=== PATIENT | female | born 1960 | race Caucasian/White ===

== ENCOUNTER 2019-02-17 15:55 | Inpatient (IN) | payer MEDICARE ==
[~2019-02-17] VITALS: Ht 154.9 cm; Wt 90.9 kg
--- NOTE | ~2019-02-17 | PR ---
[place], [place] PROGRESS NOTE NAME: SHEYLA ROWLAND UNIT #: [id number] ROOM: 310 DOCTOR: KYLE PRASAD MD BIRTHDATE: [birth year] DOS: 02/19/2019 INTERVAL NOTE CHIEF COMPLAINT: "I am having hot flashes, I am not sleeping, I just want to go home." SUMMARY OF THE VISIT: The patient was interviewed with the nurse present. The patient had later last evening voiced a desire to leave the hospital and was not compliant with care. I confronted her this morning on the seriousness of her action of holding a gun and the comments that she made about being suicidal. I also did reiterate that she is here on an involuntary basis and we have until Friday to determine whether or not we should file for further length of stay and that her cooperation would go a long way in determining what our plans would be and what we could tell the court was a possibility. She did later state that she is hopeful to get help and does want to have the anxiety under control and be able to sleep better at night. She convincingly denies medication side effects. MENTAL STATUS: She is alert and oriented to person, place and time. Mood does seem to be rather depressed with anxious overtones. There is no deepa, hypomania or psychosis. Short term memory, long-term memory and intermediate are intact. PLAN: I will increase her Seroquel to 50 mg twice a day and 100 mg at bedtime, attempting to stabilize mood, decrease anxiety and aid sleep. I will increase hydroxyzine to 50 mg q.i.d. attempting to utilize nonaddicting agents to help her with anxiety. I will use Rozerem as a p.r.n. for sleep, again avoiding sedative hypnotics, engage in individual and granados milieu activity, returning to the least restrictive environment when psychiatrically stable. KYLE PRASAD MD CM:PNTRANS [id number] KYLE PRASAD MD 02/19/19 1402 interface
--- NOTE | ~2019-02-17 | DS ---
[place], [place] DISCHARGE SUMMARY NAME: SHEYLA ROWLAND [facility] #: [id number] UNIT #: [id number] ROOM: 310 DOCTOR: KYLE PRASAD MD BIRTHDATE: [birth year] DOS: 02/22/2019 CHIEF COMPLAINT: "I am just so depressed and so anxious, I don't know what to do." HISTORY OF PRESENT ILLNESS: This is a 58-year-old white female with a lengthy history of major depression as well as anxiety disorder. The patient was found 3 days ago with a loaded gun held up to her head. The patient was able to be talked down and her boyfriend was able to get her into the Emergency Room at [facility]. Once there, she was evaluated and felt to be at substantial risk of harm to self, and in the midst of a major depressive episode. She was subsequently sent to [facility] for further treatment. The patient reports a lengthy history of depression for at least the last 20 years. This most recent episode has worsened in the last several weeks. During this period of time, she endorses poor sleep with difficulty falling asleep, sleep continuity disturbance, life support technician awakening, anergia, anhedonia, hopeless, helpless feelings, crying spells, and inability to cope. She reports fleeting suicidal thoughts, but does not have a plan at the present time. She is admitted now to rule out organic factors and to attempt to stabilize on medication. SUMMARY OF HOSPITAL COURSE: The patient was admitted to the unit where her Effexor XR was discontinued in lieu of Pristiq 100 mg in the morning. It was felt that the Pristiq as the active metabolite of Effexor XR would bypass the liver for metabolism and would have less risk of side effects for her with more benefit. Additionally, attempts to utilize non-addicting antianxiety medicines were put into place. Hydroxyzine 50 mg 3 times daily was started. Initially, she was started on Vraylar but this was discontinued in lieu of Seroquel 25 mg 3 times daily, hydroxyzine was subsequently increased to 4 times a day and the Seroquel gradually increased to its maximum dose during her stay of 100 mg 3 times a day. With these changes, the patient's symptoms improved. She was able to sleep better at night. She was able to wake up refreshed. She voiced positive plans for the future. She convincingly denied suicidal thoughts, homicidal thoughts, or any self-injurious thoughts. She also convincingly denied any medication side effects. The patient had improved sufficiently by 02/22/2019 to return home. MENTAL STATUS AT DISCHARGE: The patient is alert and oriented to person, place, and time. Mood is euthymic. Affect appropriate. There is no deepa or hypomania. There is no gross psychosis, no auditory or visual hallucinations. No delusions, no paranoia. Memory for the most part is fully intact. FINAL DIAGNOSES: Major depression, recurrent, severe; dysthymic disorder and anxiety disorder, not otherwise specified. DISPOSITION: All of her prescriptions have been E-scribed to [facility]. She will have followup in the community. At the time of discharge, she was medically and psychiatrically stable. [place], [place] DISCHARGE SUMMARY NAME: SHEYLA ROWLAND UNIT #: [id number] ROOM: 310 DOCTOR: KYLE PRASAD MD BIRTHDATE: [birth year] KYLE PRASAD MD CM:MARY ANN [id number] KYLE PRASAD MD 02/22/19 1302 interface
--- NOTE | ~2019-02-17 | PR ---
[place], [place] PROGRESS NOTE NAME: SHEYLA ROWLAND UNIT #: [id number] ROOM: 310 DOCTOR: DAVIDSON ARANDA CNP BIRTHDATE: [birth year] DOS: 02/20/2019 CHIEF COMPLAINT: "Can I get some Prilosec for my reflux?" SUMMARY OF THE VISIT: The patient was interviewed as she sat in the dining room, participating in activity. She engaged readily in conversation with me. She reports that her mood has been calm and she feels that her anxiety has improved. She reports that she slept well last night and that her appetite has been good. She continues to perseverate on getting a prescription for Prilosec. Staff reports that the patient does make bizarre comments at time and she does request different types of medications. MENTAL STATUS EXAMINATION: The patient was alert and oriented times person, place and time. She was pleasant and cooperative with me. Her mood was calm. Her affect was congruent with mood. There was no overt deepa or hypomania noted. No delusions or paranoia noted. No psychotic symptoms noted. No auditory or visual hallucinations noted. PLAN: We will continue all medications as prescribed at this time. The patient appears to be tolerating medications without side effects. Continue to encourage the patient to engage in individual and granados milieu activity. Continue fall and safety precautions. Plan is to return the patient to the least restrictive environment when she is considered psychiatrically stable. Davidson Aranda CNP CM:PNTRANS [id number] DAVIDSON ARANDA CNP 02/20/19 1608 interface
--- NOTE | ~2019-02-17 | PR ---
[place], [place] PROGRESS NOTE NAME: SHEYLA ROWLAND UNIT #: [id number] ROOM: 310 DOCTOR: DAVIDSON ARANDA CNP BIRTHDATE: [birth year] DOS: 02/21/2019 CHIEF COMPLAINT: "I am feeling better." SUMMARY OF THE VISIT: The patient was interviewed as she sat in the activity room. She has been engaged in activities. She engages readily in conversation with me. She denies any type of suicidal ideation. She does report that she does feel some agitation and starts feeling antsy in the afternoon. Staff reports that the patient is medication seeking for any type of meds including Tylenol, Maalox. She did sleep well last night and her appetite has been good. No overt behaviors noted. MENTAL STATUS EXAMINATION: The patient is alert and oriented x 3, pleasant and cooperative with me. No deepa or hypomania noted. No delusions or paranoia noted. No psychotic symptoms noted. No auditory or visual hallucinations noted. Her mood seems to be trending towards euthymia. She was calm. Affect was appropriate. Insight and judgment fair. PLAN: We will increase the patient's Seroquel to 100 mg 3 times a day in order to help alleviate the agitation symptoms. We will monitor the patient to make sure that she tolerates the medications without any extrapyramidal side effects or tardive dyskinesia. Continue to encourage the patient to engage in individual and granados milieu activity. Continue fall and safety precautions. Plan to return the patient to the least restrictive environment when she is considered psychiatrically stable. Davidson Aranda CNP CM:PNTRANS [id number] DAVIDSON ARANDA CNP 02/22/19 0324 interface
--- NOTE | ~2019-02-17 | CON ---
[place], [place] REPORT OF CONSULTATION [id number] UNIT #: [id number] ROOM: 310 DOCTOR: PHD JERSON GLENYS BIRTHDATE: [birth year] DOS: 02/18/2019 HISTORY OF PRESENT ILLNESS: The patient is a 58-year-old female referred by Dr. Madera for counseling. At the present time, the patient is on the [facility] at [place] [facility]. The patient lives with her boyfriend of 12 years. She has 2 sons who are estranged from her. She is on disability and endorsed rare alcohol use. She also denied tobacco and drug use. PAST MEDICAL HISTORY: Anxiety, congenital limb deformity, depression, GERD, suspected multiple sclerosis, and obesity. MEDICATIONS: Seroquel, Vistaril, Pristiq, Geodon, and Ativan. MENTAL STATUS EXAMINATION: The patient was awake, alert and oriented to person, place and generally to time. She can name the current President. Mood was depressed and affect was blunted. She endorsed occasional thoughts of suicide, but denied a desire to . She states that her moravian beliefs kept her from killing herself with a loaded gun she had to her head before her admission. She denied a history of suicidal ideation. Speech and language were within normal limits conversationally. Thought process was linear and goal directed. There is no evidence of hallucinations or delusions. Discussed contributing factors to her depression including her relationships with her son, ex-, and deaths in the family. Utilized CBT and supportive therapy interventions. The patient would like to continue with counseling while in inpatient. She participated in outpatient counseling in the past about 7 years ago. DIAGNOSES: Major depressive disorder, recurrent, severe; dysthymic disorder, rule out personality disorder. PLAN: I will continue to follow the patient for counseling while she is on the [facility]. Jannette Irizarry, PhD CM:CONSTR:REPORT OF CONSULTATION 174 02/18/192123 interface
--- NOTE | ~2019-02-17 | WRIGHTHP ---
[place], [place] PATIENT HISTORY AND PHYSICAL EXAM NAME: [facility]OWLAND [id number] UNIT #: [id number] ROOM: 310 DOCTOR: KYLE PRASAD MD BIRTHDATE: [birth year] DOS: 02/18/2019 INITIAL PSYCHIATRIC EVALUATION CHIEF COMPLAINT: "I am just so depressed and so anxious, I don't know what to do." HISTORY OF PRESENT ILLNESS: This is a 58-year-old white female with a lengthy history of major depression as well as anxiety disorder. The patient had been found 3 days ago with a loaded gun held to her head. The patient was able to be talked down and her boyfriend was able to get her into the Emergency Room at [place]. Once there, she was evaluated and was felt to be a substantial risk of harm to self and in a midst of a major depression and she was then admitted to the [facility] at [facility] for further evaluation and treatment. The patient reports a lengthy history of depression and states that she has been depressed for at least 20 years, of this most recent episode has worsened in the last several weeks. During which time, she notes exceptionally poor sleep with difficulty falling asleep, sleep continuity disturbance, analytical research program manager awakening, anergia, anhedonia, hopeless and helpless feelings, crying spells, and inability to cope. The patient does have fleeting suicidal thoughts and states that at times she feels that this is the only way out, but has resisted attempting suicide because she does not want to go to hell. She is admitted now to rule out organic factors to attempt to stabilize on medication, to engage in individual and granados milieu activity, returning to the least restrictive environment when psychiatrically stable. PAST MEDICAL HISTORY: Remarkable for congenital limb deformity, GERD, multiple sclerosis, obesity. SOCIAL HISTORY: She does not drink alcohol, smoke cigarettes or use illicit drugs. STRENGTHS: Ambulatory, good verbal skills. WEAKNESSES: Chronic long-term mental health issues, poor coping skills. MENTAL STATUS: The patient is alert and oriented. Mood is overwhelmingly depressed and she cried openly during the interview. She also endorses significant anxiety and feels multiple autonomic nervous system dysregulation issues with rapid heartbeat, diaphoresis and other symptoms. She endorses multiple neurovegetative symptoms associated with the depression. She also has fleeting suicidal thoughts. The patient does not have any symptoms suggestive of deepa or hypomania. She does not have any auditory or visual hallucinations. No delusions, no paranoia. Memory for short, intermediate, and custodial events is intact. DIAGNOSES: Major depression, recurrent; dysthymic disorder; rule out AXIS II disorder. PLAN: I will discontinue her Vraylar in lieu of Seroquel 25 mg 3 times a day. [place], [place] PATIENT HISTORY AND PHYSICAL EXAM NAME: SHEYLA ROWLAND UNIT #: [id number] ROOM: 310 DOCTOR: KYLE PRASAD MD BIRTHDATE: [birth year] I have also started her on hydroxyzine 50 mg 3 times a day to attempt to get ahead of the anxiety. In lieu of the Effexor XR that she was prescribed as an outpatient, I have discontinued it with Pristiq [address]. We will engage in individual and granados milieu activity, returning then to the least restrictive environment when psychiatrically stable. KYLE PRASAD MD CM:HISPHYS:PATIENT HISTORY AND PHYSICAL EXAMINATION [id number] KYLE PRASAD MD 02/18/19 1153 interface
[2019-02-17] MEDS ORDERED: XANAX0.5 MG PO (16:19)
[2019-02-17] MEDS ORDERED: EFFEXOR XR75 M1 PO (16:19)
[2019-02-17] MEDS ORDERED: EFFEXOR XR150 M1 PO (16:20)
[2019-02-17] MEDS ORDERED: ABILIFY10 MG PO (16:20)
[2019-02-17 19:40] VITALS: BP 134/82
[2019-02-18 07:05] LABS: BASO % 0.3 % (0.0-1.0); EOS # 0.5 10*3/uL (0.0-0.4); EOS % 5.1 % (1.0-4.0); HEMATOCRIT 46.4 % (37.0-47.0); HEMOGLOBIN 14.7 g/dl (12.0-16.0); LYMPH # 2.2 10*3/uL (1.3-4.4); LYMPH % 20.6 % (27.0-41.0); MEAN CELL VOLUME 92.4 fl (81.0-99.0); MEAN CORPUSCULAR HGB 29.3 pg (27.0-31.0); MEAN CORPUSCULAR HGB CONC 31.7 g/dl (33.0-37.0); MEAN PLATELET VOLUME 11.8 fl (9.6-12.3); MONO # 0.7 10*3/uL (0.1-1.0); MONO % 6.5 % (3.0-9.0); NEUT # 7.1 10*3/uL (2.3-7.9); PLATELET COUNT AUTOMATED 243 10*3/uL (130-400); RED BLOOD COUNT 5.02 10*6/uL (4.10-5.10); RED CELL DISTRI WIDTH 15.3 % (0-14.5); WHITE BLOOD COUNT 10.6 10*3/uL (4.8-10.8)
[2019-02-18 07:41] LABS: ALBUMIN 3.1 gm/dl (3.1-4.5); BUN 9 mg/dl (7-24); CHLORIDE 103 mmol/L (98-107); CHOLESTEROL 266 mg/dL (<200); HDL CHOLESTEROL 25 mg/dl (40-60); LDL CHOLESTEROL 179 mg/dL (9-159); POTASSIUM 3.6 mmol/L (3.5-5.1); SGOT/AST 29 IU/L (3-35); SGPT/ALT 25 U/L (12-78); SODIUM 139 mmol/L (136-145); TOTAL PROTEIN 7.2 gm/dL (6.4-8.2); TRIGLYCERIDES 312 mg/dl (<150); VLDL CHOLESTEROL 62 mg/dL (6-40)
[2019-02-18 07:49] LABS: ALKALINE PHOSPHATASE 145 U/L (45-117)
[2019-02-18 08:14] VITALS: BP 128/88
[2019-02-18 09:16] LABS: VITAMIN D, 25-HYDROXY 33.6 ng/mL (30-100)
[2019-02-18 20:01] VITALS: BP 140/84
[2019-02-19 07:45] VITALS: BP 142/76
[2019-02-19 20:00] VITALS: BP 147/83
[2019-02-20 07:46] VITALS: BP 143/80
[2019-02-20 20:00] VITALS: BP 159/89
[2019-02-21 07:37] VITALS: BP 123/69
[2019-02-21 20:00] VITALS: BP 132/68
[2019-02-22 07:50] VITALS: BP 146/82
[2019-02-22] MEDS ORDERED: QUETIAPINE FUM100 M3 PO (08:32)
[2019-02-22] MEDS ORDERED: ATARAX,VISTARIL50 MG PO (08:32)
[2019-02-22] MEDS ORDERED: PRISTIQ50 MG PO (08:32)
== END 2019-02-22 12:03 | disposition home or self-care (01) | DRG 885 ==
LOC: 3N 15:55
PROVIDERS: ADMIT Psychiatry & Neurology Psychiatry
DX: F33.3 Major depressive disorder, recurrent, severe with psychotic symptoms (principal); R45.851 Suicidal ideations; G35 Multiple sclerosis; F41.9 Anxiety disorder, unspecified; K21.9 Gastro-esophageal reflux disease without esophagitis; E66.9 Obesity, unspecified; F17.210 Nicotine dependence, cigarettes, uncomplicated; Z98.891 History of uterine scar from previous surgery; Z88.2 Allergy status to sulfonamides; Z88.7 Allergy status to serum and vaccine; Q74.9 Unspecified congenital malformation of limb(s)